=== PATIENT | female | born 1945 | race Caucasian/White ===

== ENCOUNTER 2019-09-16 21:45 | Observation (INO) | payer MEDICARE ==
--- NOTE | 2019-09-16 21:55 | ER Document Report ---
ED Medical Screen (RME) - General Chief Complaint: Headache Stated Complaint: HEADACHE,SLURRED SPEECH Time Seen by Provider: 09/16/19 21:52 Primary Care Provider: STEVE DOBBS MD [Primary Care Provider] - Follow up as needed Notes: HPI: 73-year-old female with prior history of CVA 5 years ago who is not on blood thinners presenting for fairly sudden onset right-sided headache that was intermittent in nature that began yesterday and has become more persistent today. Patient states he became much more painful several hours ago and her son indicated that she might be slurring her speech. She reports no vision changes no unilateral weakness. Does not feel like she is slurring her speech currently. Patient drove herself to the emergency department. PHYSICAL EXAMINATION: Patient has no facial droop and no slurred speech. Patient has no unilateral weakness definitively on exam although it is a limited exam at triage. Alert and oriented x3. I have greeted and performed a rapid initial assessment of this patient. A comprehensive ED assessment and evaluation of the patient, analysis of test results and completion of medical decision making process will be conducted by an additional ED providers. Doctor's Discharge - Discharge Referrals: STEVE DOBBS MD [Primary Care Provider] - Follow up as needed
--- NOTE | 2019-09-16 22:39 | RADIOLOGY REPORT (SQ) ---
EXAM DESCRIPTION: CT HEAD WITHOUT IV CONTRAST COMPLETED DATE/TME: 09/16/2019 21:52 CLINICAL INDICATION: 73-year-old female with headache. COMPARISON: None. TECHNIQUE: CT brain without contrast. This exam was performed according to our departmental dose optimization program which includes use of automated exposure control, adjustment of the mA and/or kV according to patient size and/or use of iterative reconstruction technique. FINDINGS: Multifocal regions of patchy hypoattenuation are present in a subcortical and periventricular deep white matter distribution, nonspecific; however, most likely represent small vessel ischemic disease, age indeterminate. The ventricles, and sulci are prominent suggesting underlying volume loss. The hirsch-white matter differentiation is preserved. There is no mass effect, midline shift, intra- or extra-axial fluid collection/acute hemorrhage. The osseous structures are unremarkable. The paranasal sinuses and mastoid air cells are clear. IMPRESSION: 1. No acute intracranial abnormalities. Nonspecific white matter change most likely small vessel ischemic disease, age indeterminate. 2. CT is insensitive for early evaluation of acute stroke. If there is clinical concern for acute ischemia, an MRI may be considered.
--- NOTE | 2019-09-16 22:40 | RADIOLOGY REPORT (SQ) ---
EXAM DESCRIPTION: XR CHEST 1 VIEW COMPLETED DATE/TME: 09/16/2019 21:52 CLINICAL INDICATION: 73-year-old female with headache. TECHNIQUE: Single view, AP portable chest was obtained. COMPARISON: None. FINDINGS: Unremarkable cardiac and mediastinal silhouette. Heart size is normal. Lungs are clear without focal opacity, pneumothorax or pleural effusions. The visualized bones are within normal limits. Postoperative change of the LEFT humeral head with surgical anchors. IMPRESSION: No acute cardiopulmonary abnormalities.
[2019-09-17 00:02] LABS: ABSOLUTE BASOPHILS # (AUTO) 0.1 10^3/uL (0.0-0.2); ABSOLUTE EOSINOPHILS # (AUTO) 0.1 10^3/uL (0.0-0.6); ABSOLUTE MONOCYTES (AUTO) 0.5 10^3/uL (0.1-1.4); ABSOLUTE NEUT (AUTO) 4.4 10^3/uL (1.7-8.2); BASOPHILS % (AUTO) 0.7 % (0-2); EOSINOPHILS % (AUTO) 1.8 % (0-6); HEMATOCRIT 42.6 % (36.0-47.0); HEMOGLOBIN 14.4 g/dL (12.0-15.5); LYMPHOCYTES % (AUTO) 37.3 % (13-45); MEAN CORPUSCULAR HEMOGLOBIN 30.3 pg (27.0-33.4); MEAN CORPUSCULAR HGB CONC 33.8 g/dL (32.0-36.0); MEAN CORPUSCULAR VOLUME 90 fl (80-97); MONOCYTES % (AUTO) 6.5 % (3-13); PLATELET COUNT 296 10^3/uL (150-450); RED BLOOD COUNT 4.75 10^6/uL (3.72-5.28); SEGMENTED NEUTROPHILS % (AUTO) 53.7 % (42-78); TOTAL CELLS COUNTED % (AUTO) 100 %; WHITE BLOOD COUNT 8.1 10^3/uL (4.0-10.5)
[2019-09-17 00:08] LABS: INTERNATIONAL RATION (INR) 0.98; PARTIAL THROMBOPLASTIN TIME 27.9 SEC (23.5-35.8)
[2019-09-17 00:24] LABS: ALBUMIN 4.1 g/dL (3.5-5.0); ALKALINE PHOSPHATASE 72 U/L (38-126); ANION GAP 10 (5-19); ASPARTATE AMINO TRANSFERASE 19 U/L (14-36); BILIRUBIN,TOTAL 0.6 mg/dL (0.2-1.3); BLOOD UREA NITROGEN 15 mg/dL (7-20); CALCIUM 9.7 mg/dL (8.4-10.2); CARBON DIOXIDE 27 mmol/L (22-30); CHLORIDE 99 mmol/L (98-107); CREATINE KINASE 99 U/L (30-135); GLUCOSE 191 mg/dL (75-110); POTASSIUM 3.7 mmol/L (3.6-5.0); TOTAL PROTEIN 6.9 g/dL (6.3-8.2)
--- NOTE | 2019-09-17 00:32 | ER Document Report ---
ED General - General Chief Complaint: Headache Stated Complaint: HEADACHE,SLURRED SPEECH Time Seen by Provider: 09/16/19 21:52 - HPI Notes: 73-year-old female history of hypertension, hyperlipidemia, diabetes, and stroke (residual left eye complete blindness) presents with 2 days of intermittent right-sided headache and slurred speech. Patient says she never has headaches and has never had a headache only in 1 focal portion of the right side of her head before so this headache is very abnormal for her. Headache is a moderate pain that lasts for minutes to hours and then resolves and has done so numerous times over the past 2 days. Patient was speaking with her son-in-law at around approximately 4 hours prior to arrival on the phone and he noticed that patient was slurring her speech. Says some of the words that she was saying came out garbled. I spoke to patient's son-in-law and he says that this has never happe low before. Patient says she remembers son in law commenting on her speech but does not remember her speech being slurred. Patient denies any trauma, neck pain/stiffness, fever, chest pain, shortness of breath, palpitations, recent med changes, weakness/numbness, change in gait, change in vision - Related Data Allergies/Adverse Reactions: codeine Allergy (Verified 09/16/19 22:28) Home Medications: metformin,lasix,carvedilol, kcl, pravast, paxil, iron Past Medical History - General Information source: Patient, Relative - Social History Smoking Status: Former Smoker Family History: Reviewed & Not Pertinent Patient has homicidal ideation: No Review of Systems - Review of Systems Notes: REVIEW OF SYSTEMS: CONSTITUTIONAL : Denies fever, chills, or sweats. EENT: Denies recent cold/sinus symptoms, denies throat pain CARDIOVASCULAR: Denies chest pain, SHIN RESPIRATORY: Denies cough, denies shortness of breath. GASTROINTESTINAL: Denies abdominal pain, nausea/vomiting. GENITOURINARY: Denies difficulty urinating, painful urination. FEMALE GENITOURINARY: Denies abnormal vaginal bleeding, vaginal discharge. MUSCULOSKELETAL: Denies neck pain, back pain. SKIN: Denies rash or skin lesions. HEMATOLOGIC : Denies easy bruising or bleeding. LYMPHATIC: Denies swollen, enlarged glands. NEUROLOGICAL: +headache, denies change in gait. PSYCHIATRIC: Denies anxiety or stress or depression. Physical Exam - Vital signs Vitals: Temp Pulse BP Pulse Ox 98.1 F 78 150/72 H 96 09/16/19 21:55 09/16/19 21:55 09/16/19 21:55 09/16/19 21:55 - Notes Notes: PHYSICAL EXAMINATION: GENERAL: Well-appearing, well-nourished and in no acute distress. HEAD: Atraumatic, normocephalic. EYES: Pupils equal round, right eye appropriate constriction, left eye dilates when light shined in it, sclera anicteric, conjunctiva are normal. ENT: nares patent, moist mucous membranes. NECK: Normal range of motion, supple without lymphadenopathy, no bruit LUNGS: Breath sounds clear to auscultation bilaterally and equal. No wheezes rales or rhonchi. HEART: Regular rate with irregular rhythm, no murmurs ABDOMEN: Soft, nontender, no guarding, no masses, no CVAT EXTREMITIES: Normal range of motion, no pitting or edema. No cyanosis. NEUROLOGICAL: Awake, alert, conversing appropriately, moves all extremities spontaneously. Cranial nerves II through XII intact bilaterally, normal [id number] bilaterally, 5 out of 5 strength in all extremities, normal sensation PSYCH: Normal mood, normal affect. SKIN: Warm, Dry, normal turgor, no rashes or lesions noted. Course - Re-evaluation Re-evalutation: 09/17/19 00:36 Presentation concerning for possible TIA, rule out hemorrhagic stroke. Patient currently at baseline, but patient and son-in-law appear reliable and given patient's risk factors and prior history of stroke patient is at high risk. Irregular heartbeat but sinus arrhythmia on EKG. No bleed on CT. No ACS symptoms but will obtain one troponin given borderline EKG abnormalities. Check electrolytes, glucose, CT head, monitor, NIH stroke scale, and observation versus admit. 09/17/19 01:21 Patient patient remains return to neurologic baseline, discussed case with Dr. Chowdhury and has accepted patient to [facility] for further work-up for TIA. - Vital Signs Vital signs: Temp Pulse Resp BP Pulse Ox 97.5 F 70 14 150/64 H 99 09/17/19 03:13 09/17/19 04:00 09/17/19 04:00 09/17/19 04:00 09/17/19 04:00 - Laboratory Result Diagrams: 09/17/19 05:54 09/17/19 05:54 Laboratory results interpreted by me: 09/16/19 23:35 Sodium 136.3 L Est GFR (MDRD) Non-Af 58 L Glucose 191 H - EKG Interpretation by Me Additional EKG results interpreted by me: 09/17/19 00:00 Heart rate 70, sinus arrhythmia, no significant ST elevations or depressions, equivocal T wave abnormalities, QTc 436 Discharge - Discharge Clinical Impression: TIA (transient ischemic attack) Condition: Fair Disposition: ADMITTED INPATIENT Admitting Provider: [place] (Hospitalist) Unit Admitted: [facility]
[2019-09-17 00:34] LABS: CREATINE KINASE MB 0.94 ng/mL (<4.55)
[2019-09-17 00:37] LABS: TROPONIN I < 0.012 ng/mL
[2019-09-17] MEDS ORDERED: GLUCAGON,HUMAN RECOMB 1 MG INJ IM PRN (01:22)
[2019-09-17] MEDS ORDERED: DEXTROSE 50%-WATER 25 GM/50 ML DISP.SYRIN IV PRN ×2 (01:22)
[2019-09-17] MEDS ORDERED: ACETAMINOPHEN 325 MG TABLET PO PRN (01:22)
[2019-09-17] MEDS ORDERED: MAGNESIUM HYDROXIDE SUSP 30 ML UDCUP PO PRN (01:22)
[2019-09-17] MEDS ORDERED: DEXTROSE 40% GEL 15 GM TUBE PO PRN ×2 (01:22)
[2019-09-17] MEDS ORDERED: DOCUSATE SODIUM 100 MG CAPSULE PO PRN (01:22)
[2019-09-17] MEDS ORDERED: ATORVASTATIN CALCIUM 80 MG TABLET PO SCH (01:30)
[2019-09-17] MEDS: ASPIRIN 325 MG TABLET, ENT COATED PO SCH ×2 (02:16→11:01)
[2019-09-17] MEDS: HEPARIN SOD (PORCINE) 5,000 UNIT/ML 1 ML VIAL SUBCUT SCH ×2 (05:32→14:19)
--- NOTE | 2019-09-17 05:55 | PDOC H&P ---
History of Present Illness Admission Date/PCP: 09/17/19 01:30 STEVE DOBBS MD Patient complains of: Headache and slurred speech History of Present Illness: BRADFORD RICHARDS is a 73 year old female with a past medical history of CVA and residual left-sided blindness, diabetes, hypertension and dyslipidemia. She presents with at least 24 hours of a dull right sided headache for which she took Tylenol with intermittent relief. She was then noted by family members to have an episode of slurred speech 2 hours prior to presentation which is subsequently resolved with out intervention. In the emergency department she receives Tylenol, her work-up is unremarkable and she is referred to the hospitalist for admission. She denies palpitations, focal weakness or confusion, recent change of [id number] or prescribed medication. Past Medical History Cardiac Medical History: Reports: Hyperlipidema, Hypertension Neurological Medical History: Reports: Ischemic CVA Endocrine Medical History: Reports: Diabetes Mellitus Type 2 Psychiatric Medical History: Reports: Depression Past Surgical History Past Surgical History: Reports: None Social History Information Source: Patient, [facility] Lives with: Alone Smoking Status: Former Smoker Cigarettes Packs Per Day: 0.5 Electronic Cigarette use?: No Number of Years Smokin Last Time Smoked: 1967 Frequency of Alcohol Use: Rare Hx Recreational Drug Use: No Drugs: None Hx Prescription Drug Abuse: No - Advance Directive Resuscitation Status: Full Code Family History Family History: Hypertension Parental Family History Reviewed: Yes Children Family History Reviewed: Yes Sibling(s) Family History Reviewed.: Yes Medication/Allergy Allergies/Adverse Reactions: codeine Allergy (Verified 09/16/19 22:28) Review of Systems Constitutional: ABSENT: chills, fever(s), headache(s), weight gain, weight loss Eyes: ABSENT: visual disturbances Ears: ABSENT: hearing changes Cardiovascular: ABSENT: chest pain, dyspnea on exertion, edema, orthropnea, p alpitations Respiratory: ABSENT: cough, hemoptysis Gastrointestinal: ABSENT: abdominal pain, constipation, diarrhea, hematemesis, hematochezia, nausea, vomiting Genitourinary: ABSENT: dysuria, hematuria Musculoskeletal: ABSENT: joint swelling Integumentary: ABSENT: rash, wounds Neurological: ABSENT: abnormal gait, abnormal speech, confusion, dizziness, focal weakness, syncope Psychiatric: ABSENT: anxiety, depression, homidical ideation, suicidal ideation Endocrine: ABSENT: cold intolerance, heat intolerance, polydipsia, polyuria Hematologic/Lymphatic: ABSENT: easy bleeding, easy bruising Physical Exam Vital Signs: Temp Pulse Resp BP Pulse Ox 97.5 F 70 14 150/64 H 99 09/17/19 03:13 09/17/19 04:00 09/17/19 04:00 09/17/19 04:00 09/17/19 04:00 Intake & Output 09/15/19 09/16/19 09/17/19 11:59 11:59 11:59 Weight 87.9 kg General appearance: PRESENT: no acute distress, well-developed, well-nourished Head exam: PRESENT: atraumatic, normocephalic Eye exam: PRESENT: conjunctiva pink, EOMI, PERRLA. ABSENT: scleral icterus Ear exam: PRESENT: normal external ear exam Mouth exam: PRESENT: moist, tongue midline Neck exam: ABSENT: carotid bruit, JVD, lymphadenopathy, thyromegaly Respiratory exam: PRESENT: clear to auscultation sabine. ABSENT: rales, rhonchi, wheezes Cardiovascular exam: PRESENT: RRR. ABSENT: diastolic murmur, rubs, systolic murmur Pulses: PRESENT: normal dorsalis pedis pul Vascular exam: PRESENT: normal capillary refill GI/Abdominal exam: PRESENT: normal bowel sounds, soft. ABSENT: distended, guarding, mass, organolmegaly, rebound, tenderness Rectal exam: PRESENT: deferred Extremities exam: PRESENT: full ROM. ABSENT: calf tenderness, clubbing, pedal edema Neurological exam: PRESENT: alert, awake, oriented to person, oriented to place, oriented to time, oriented to situation, CN II-XII grossly intact. ABSENT: motor sensory deficit Psychiatric exam: PRESENT: appropriate affect, normal mood. ABSENT: homicidal ideation, suicidal ideation Skin exam: PRESENT: dry, intact, warm. ABSENT: cyanosis, rash Results Laboratory Results: 09/16/19 23:35 09/16/19 23:35 09/16/19 09/16/19 23:35 23:35 WBC 8.1 RBC 4.75 Hgb 14.4 Hct 42.6 MCV 90 MCH 30.3 MCHC 33.8 RDW 14.0 Plt Count 296 Seg Neutrophils % 53.7 Sodium 136.3 L Potassium 3.7 Chloride 99 Carbon Dioxide 27 Anion Gap 10 BUN 15 Creatinine 0.95 Est GFR ( Amer) > 60 Glucose 191 H Calcium 9.7 Total Bilirubin 0.6 AST 19 Alkaline Phosphatase 72 Total Protein 6.9 Albumin 4.1 09/16/19 09/16/19 23:35 23:35 Creatine Kinase 99 CK-MB (CK-2) 0.94 Troponin I < 0.012 Impressions: Chest X-Ray 09/16/19 21:52 IMPRESSION: No acute cardiopulmonary abnormalities. Head CT 09/16/19 21:52 IMPRESSION: 1. No acute intracranial abnormalities. Nonspecific white matter change most likely small vessel ischemic disease, age indeterminate. 2. CT is insensitive for early evaluation of acute stroke. If there is clinical concern for acute ischemia, an MRI may be considered. Assessment and Plan - Diagnosis (1) TIA (transient ischemic attack) Is this a current diagnosis for this admission?: Yes Plan: CVA care site deployed, permissive hypertension, aspirin and statin ordered, follow-up imaging, TSH, lipid profile (2) Hypertension Is this a current diagnosis for this admission?: Yes Plan: Permissive hypertension pending TIA evaluation (3) Diabetes Is this a current diagnosis for this admission?: Yes Plan: Humalog sliding scale q. before meals, follow-up A1c (4) Dyslipidemia Is this a current diagnosis for this admission?: Yes Plan: Statin ordered, follow-up lipid profile (5) Headache Is this a current diagnosis for this admission?: Yes Plan: CT unremarkable for acute finding, symptomatic management - Time Time Spent with patient: 25-34 minutes - Inpatient Certification Medical Necessity: Need Close Monitoring Due to Risk of Patient Decompensation
[2019-09-17 06:24] LABS: ABSOLUTE BASOPHILS # (AUTO) 0.1 10^3/uL (0.0-0.2); ABSOLUTE EOSINOPHILS # (AUTO) 0.2 10^3/uL (0.0-0.6); ABSOLUTE LYMPHOCYTES (AUTO) 3.6 10^3/uL (0.5-4.7); ABSOLUTE MONOCYTES (AUTO) 0.7 10^3/uL (0.1-1.4); ABSOLUTE NEUT (AUTO) 4.8 10^3/uL (1.7-8.2); BASOPHILS % (AUTO) 0.6 % (0-2); EOSINOPHILS % (AUTO) 1.7 % (0-6); HEMATOCRIT 40.2 % (36.0-47.0); HEMOGLOBIN 13.5 g/dL (12.0-15.5); LYMPHOCYTES % (AUTO) 38.7 % (13-45); MEAN CORPUSCULAR HEMOGLOBIN 30.2 pg (27.0-33.4); MEAN CORPUSCULAR HGB CONC 33.7 g/dL (32.0-36.0); MEAN CORPUSCULAR VOLUME 90 fl (80-97); MONOCYTES % (AUTO) 7.4 % (3-13); PLATELET COUNT 260 10^3/uL (150-450); RED BLOOD COUNT 4.48 10^6/uL (3.72-5.28); RED CELL DISTRIBUTION WIDTH 14.4 % (11.5-14.0); SEGMENTED NEUTROPHILS % (AUTO) 51.6 % (42-78); TOTAL CELLS COUNTED % (AUTO) 100 %; WHITE BLOOD COUNT 9.3 10^3/uL (4.0-10.5)
[2019-09-17 06:41] LABS: ANION GAP 9 (5-19); BLOOD UREA NITROGEN 15 mg/dL (7-20); CALCIUM 9.2 mg/dL (8.4-10.2); CARBON DIOXIDE 28 mmol/L (22-30); CHLORIDE 98 mmol/L (98-107); CHOLESTEROL 161.64 mg/dL (0-200); GLUCOSE 136 mg/dL (75-110); POTASSIUM 3.8 mmol/L (3.6-5.0); TRIGLYCERIDES 199 mg/dL (<150)
[2019-09-17 06:48] LABS: VLDL CHOLESTEROL 39.8 mg/dL (10-31)
[2019-09-17 06:52] LABS: DIRECT LDL 104 mg/dL (<100)
--- NOTE | 2019-09-17 09:16 | EKG REPORT ---
SEVERITY:- BORDERLINE ECG - SINUS ARRHYTHMIA, RATE 60-79 VENTRICULAR PREMATURE COMPLEX BORDERLINE LEFT AXIS DEVIATION BORDERLINE T ABNORMALITIES, ANT-LAT LEADS : Confirmed by: Jen Valencia 17-Sep-2019 09:15:54
[2019-09-17] MEDS: INSULIN LISPRO 100 UNIT/ML 3 ML VIAL SUBCUT SCH ×2 (10:59→12:37)
--- NOTE | 2019-09-17 11:19 | PDOC PROGRESS REPORT ---
Subjective Progress Note for:: 09/17/19 Subjective:: The patient reports that she already had her carotid study and echocardiogram done. She mentions an MRI but I did not see a specific order. Reason For Visit: TIA DM Physical Exam Vital Signs: Temp Pulse Resp BP Pulse Ox 97.6 F 65 18 142/64 H 99 09/17/19 10:59 09/17/19 10:59 09/17/19 10:59 09/17/19 10:59 09/17/19 10:59 Intake & Output 09/16/19 09/17/19 09/18/19 06:59 06:59 06:59 Intake Total 240 Output Total 200 Balance 40 Weight 87.9 kg General appearance: PRESENT: no acute distress, cooperative, well-developed Head exam: PRESENT: atraumatic, normocephalic Ear exam: PRESENT: normal external ear exam. ABSENT: bleeding, drainage Respiratory exam: PRESENT: clear to auscultation sabine, symmetrical, unlabored. ABSENT: decreased breath sounds, prolonged expiratory phas, rales, rhonchi, tachypnea, wheezes Cardiovascular exam: PRESENT: RRR, +S1, +S2. ABSENT: bradycardia, diastolic murmur, irregular rhythm, systolic murmur, tachycardia GI/Abdominal exam: PRESENT: normal bowel sounds, soft. ABSENT: distended, guarding, tenderness Rectal exam: PRESENT: deferred Gentrourinary exam: ABSENT: indwelling catheter Extremities exam: ABSENT: pedal edema Musculoskeletal exam: PRESENT: ambulatory, normal inspection Neurological exam: PRESENT: alert, awake, oriented to person, oriented to place, oriented to time, oriented to situation, other - No dysarthria noted. ABSENT: altered Psychiatric exam: PRESENT: appropriate affect. ABSENT: agitated, anxious Focused psych exam: ABSENT: delusional, paranoid, restlessness Skin exam: PRESENT: dry, normal color, warm. ABSENT: rash Results Laboratory Results: 09/17/19 05:54 09/17/19 05:54 09/16/19 09/16/19 09/17/19 23:35 23:35 05:54 WBC 8.1 9.3 RBC 4.75 4.48 Hgb 14.4 13.5 Hct 42.6 40.2 MCV 90 90 MCH 30.3 30.2 MCHC 33.8 33.7 RDW 14.0 14.4 H Plt Count 296 260 Seg Neutrophils % 53.7 51.6 Sodium 136.3 L Potassium 3.7 Chloride 99 Carbon Dioxide 27 Anion Gap 10 BUN 15 Creatinine 0.95 Est GFR ( Amer) > 60 Glucose 191 H Calcium 9.7 Total Bilirubin 0.6 AST 19 Alkaline Phosphatase 72 Total Protein 6.9 Albumin 4.1 Triglycerides Cholesterol LDL Cholesterol Direct VLDL Cholesterol HDL Cholesterol 09/17/19 05:54 WBC RBC Hgb Hct MCV MCH MCHC RDW Plt Count Seg Neutrophils % Sodium 134.9 L Potassium 3.8 Chloride 98 Carbon Dioxide 28 Anion Gap 9 BUN 15 Creatinine 0.78 Est GFR ( Amer) > 60 Glucose 136 H Calcium 9.2 Total Bilirubin AST Alkaline Phosphatase Total Protein Albumin Triglycerides 199 H Cholesterol 161.64 LDL Cholesterol Direct 104 H VLDL Cholesterol 39.8 H HDL Cholesterol 51 09/16/19 09/16/19 23:35 23:35 Creatine Kinase 99 CK-MB (CK-2) 0.94 Troponin I < 0.012 Impressions: Chest X-Ray 09/16/19 21:52 IMPRESSION: No acute cardiopulmonary abnormalities. Head CT 09/16/19 21:52 IMPRESSION: 1. No acute intracranial abnormalities. Nonspecific white matter change most likely small vessel ischemic disease, age indeterminate. 2. CT is insensitive for early evaluation of acute stroke. If there is clinical concern for acute ischemia, an MRI may be considered.
--- NOTE | 2019-09-17 11:50 | RADIOLOGY REPORT (SQ) ---
EXAM DESCRIPTION: CAROTID DOPPLER IMAGES COMPLETED DATE/TIME: 09/17/2019 11:04 am REASON FOR STUDY: tia COMPARISON: None. TECHNIQUE: Grayscale ultrasound, Doppler velocity and spectra, and color Doppler images acquired of the extra-cranial carotid and vertebral arteries. Images stored on PACS. LIMITATIONS: None. FINDINGS: RIGHT CAROTID CCA Velocities: Within normal limits. ICA Velocities Peak systolic 1.23 m/s. End diastolic 0.25 m/s. Proximal ICA/CCA peak systolic ratio 1.6. Spectra normal. No significant plaque. LEFT CAROTID CCA Velocities: Within normal limits. ICA Velocities Peak systolic 0.98 m/s. End diastolic 0.24 m/s. Proximal ICA/CCA peak systolic ratio 1.0. Spectra normal. No significant plaque. VERTEBRAL ARTERIES: Antegrade flow. Normal waveforms. SUBCLAVIAN ARTERIES: Not imaged. OTHER: No other significant finding. IMPRESSION: NO HEMODYNAMICALLY SIGNIFICANT STENOSIS. COMMENT: Quality ID #[id number]: Velocity criteria are extrapolated from the diameter data as defined by t he Society of Radiologists in Ultrasound Consensus Conference. Radiology 2003: 229; 340-346. TECHNICAL DOCUMENTATION: JOB ID: [id number] 2010 [employer]- All Rights Reserved Reading location - IP/workstation name: [email or web address]
[2019-09-17 12:00] LABS: URINE AMPHETAMINES SCREEN NEGATIVE; URINE BARBITURATES SCREEN NEGATIVE; URINE BENZODIAZEPINES SCREEN NEGATIVE; URINE COCAINE SCREEN NEGATIVE; URINE MARIJUANA (THC) SCREEN NEGATIVE; URINE METHADONE SCREEN NEGATIVE; URINE PHENCYCLIDINE SCREEN NEGATIVE
--- NOTE | 2019-09-17 14:14 | PDOC DISCHARGE SUMMARY ---
Impression - Admit/DC Date/PCP Admission Date/Primary Care Provider: 09/17/19 01:30 STEVE DOBBS MD Discharge Date: 09/17/19 - Discharge Diagnosis (1) TIA (transient ischemic attack) Is this a current diagnosis for this admission?: Yes (2) Hypertension Is this a current diagnosis for this admission?: Yes (4) Dyslipidemia Is this a current diagnosis for this admission?: Yes (5) Headache Is this a current diagnosis for this admission?: Yes - Additional Information Resuscitation Status: Full Code Referrals: STEVE DOBBS MD [Primary Care Provider] - Follow up as needed Home Medications: Carvedilol [Coreg 12.5 mg Tablet] 12.5 mg PO BID 09/17/19 Ferrous Sulfate [Feosol 325 mg Tablet] 325 mg PO QHS 09/17/19 Fluoxetine HCl 20 mg PO QHS 09/17/19 Furosemide [Lasix 40 mg Tablet] 40 mg PO QAM 09/17/19 Metformin HCl [Metformin HCl ER] 1,000 mg PO BID 09/17/19 Potassium Chloride 10 meq PO QAM 09/17/19 Pravastatin Sodium 40 mg PO QHS 09/17/19 History of Present Illiness History of Present Illness: BRADFORD RICHARDS is a 73 year old female with a past medical history of CVA and residual left-sided blindness, diabetes, hypertension and dyslipidemia. She presents with at least 24 hours of a dull right sided headache for which she took Tylenol with intermittent relief. She was then noted by family members to have an episode of slurred speech 2 hours prior to presentation which is subsequently resolved with out intervention. In the emergency department she receives Tylenol, her work-up is unremarkable and she is referred to the hospitalist for admission. She denies palpitations, focal weakness or confusion, recent change of [id number] or prescribed medication. Hospital Course Hospital Course: The patient had an unremarkable hospital course. Headache and the dysarthria that she did not appreciate but her family thought she had resolved prior to the arrival at the emergency room. She had no recurrence of symptoms. She did get her carotid ultrasound echocardiogram this morning. She is safe for discharge. Physical Exam Vital Signs: Temp Pulse Resp BP Pulse Ox 97.6 F 65 18 142/64 H 99 09/17/19 10:59 09/17/19 10:59 09/17/19 10:59 09/17/19 10:59 09/17/19 10:59 Intake & Output 09/16/19 09/17/19 09/18/19 06:59 06:59 06:59 Intake Total 240 Output Total 200 Balance 40 Weight 87.9 kg General appearance: PRESENT: no acute distress Head exam: PRESENT: atraumatic, normocephalic Respiratory exam: PRESENT: clear to auscultation sabine. ABSENT: rales, rhonchi, wheezes Cardiovascular exam: PRESENT: RRR, +S1, +S2 GI/Abdominal exam: PRESENT: normal bowel sounds, soft. ABSENT: distended, tenderness Results Laboratory Results: WBC 9.3 10^3/uL (4.0-10.5) 09/17/19 05:54 RBC 4.48 10^6/uL (3.72-5.28) 09/17/19 05:54 Hgb 13.5 g/dL (12.0-15.5) 09/17/19 05:54 Hct 40.2 % (36.0-47.0) 09/17/19 05:54 MCV 90 fl (80-97) 09/17/19 05:54 MCH 30.2 pg (27.0-33.4) 09/17/19 05:54 MCHC 33.7 g/dL (32.0-36.0) 09/17/19 05:54 RDW 14.4 % (11.5-14.0) H 09/17/19 05:54 Plt Count 260 10^3/uL (150-450) 09/17/19 05:54 Lymph % (Auto) 38.7 % (13-45) 09/17/19 05:54 Mccurtain % (Auto) 7.4 % (3-13) 09/17/19 05:54 Eos % (Auto) 1.7 % (0-6) 09/17/19 05:54 Baso % (Auto) 0.6 % (0-2) 09/17/19 05:54 Absolute Neuts (auto) 4.8 10^3/uL (1.7-8.2) 09/17/19 05:54 Absolute Lymphs (auto) 3.6 10^3/uL (0.5-4.7) 09/17/19 05:54 Absolute Monos (auto) 0.7 10^3/uL (0.1-1.4) 09/17/19 05:54 Absolute Eos (auto) 0.2 10^3/uL (0.0-0.6) 09/17/19 05:54 Absolute Basos (auto) 0.1 10^3/uL (0.0-0.2) 09/17/19 05:54 Seg Neutrophils % 51.6 % (42-78) 09/17/19 05:54 ESR 12 mm/hr (0-30) 09/16/19 23:35 PT 13.0 SEC (11.4-15.4) 09/16/19 23:35 INR 0.98 09/16/19 23:35 APTT 27.9 SEC (23.5-35.8) 09/16/19 23:35 Sodium 134.9 mmol/L (137-145) L 09/17/19 05:54 Potassium 3.8 mmol/L (3.6-5.0) 09/17/19 05:54 Chloride 98 mmol/L (98-107) 09/17/19 05:54 Carbon Dioxide 28 mmol/L (22-30) 09/17/19 05:54 Anion Gap 9 (5-19) 09/17/19 05:54 BUN 15 mg/dL (7-20) 09/17/19 05:54 Creatinine 0.78 mg/dL (0.52-1.25) 09/17/19 05:54 Est GFR ( Amer) > 60 (>60) 09/17/19 05:54 Est GFR (MDRD) Non-Af > 60 (>60) 09/17/19 05:54 Glucose 136 mg/dL (75-110) H 09/17/19 05:54 POC Glucose 144 mg/dL (70-110) H 09/17/19 11:00 Hemoglobin A1c % 7.0 % (4.7-6.0) H 09/17/19 05:54 Calcium 9.2 mg/dL (8.4-10.2) 09/17/19 05:54 Total Bilirubin 0.6 mg/dL (0.2-1.3) 09/16/19 23:35 Direct Bilirubin 0.0 mg/dL (0.0-0.4) 09/16/19 23:35 Neonat Total Bilirubin Not Reportable 09/16/19 23:35 Neonat Direct Bilirubin Not Reportable 09/16/19 23:35 Neonat Indirect Bili Not Reportable 09/16/19 23:35 AST 19 U/L (14-36) 09/16/19 23:35 ALT 13 U/L (<35) 09/16/19 23:35 Alkaline Phosphatase 72 U/L (38-126) 09/16/19 23:35 Creatine Kinase 99 U/L (30-135) 09/16/19 23:35 CK-MB (CK-2) 0.94 ng/mL (<4.55) 09/16/19 23:35 Troponin I < 0.012 ng/mL 09/16/19 23:35 Total Protein 6.9 g/dL (6.3-8.2) 09/16/19 23:35 Albumin 4.1 g/dL (3.5-5.0) 09/16/19 23:35 Triglycerides 199 mg/dL (<150) H 09/17/19 05:54 Cholesterol 161.64 mg/dL (0-200) 09/17/19 05:54 LDL Cholesterol Direct 104 mg/dL (<100) H 09/17/19 05:54 VLDL Cholesterol 39.8 mg/dL (10-31) H 09/17/19 05:54 HDL Cholesterol 51 mg/dL (>40) 09/17/19 05:54 Urine Opiates Screen NEGATIVE 09/17/19 11:31 Urine Methadone Screen NEGATIVE 09/17/19 11:31 Ur Barbiturates Screen NEGATIVE 09/17/19 11:31 Ur Phencyclidine Scrn NEGATIVE 09/17/19 11:31 Ur Amphetamines Screen NEGATIVE 09/17/19 11:31 U Benzodiazepines Scrn NEGATIVE 09/17/19 11:31 Urine Cocaine Screen NEGATIVE 09/17/19 11:31 U Marijuana (THC) Screen NEGATIVE 09/17/19 11:31 09/16/19 23:35 CK-MB (CK-2) 0.94 Troponin I < 0.012 Impressions: Chest X-Ray 09/16/19 21:52 IMPRESSION: No acute cardiopulmonary abnormalities. Head CT 09/16/19 21:52 IMPRESSION: 1. No acute intracranial abnormalities. Nonspecific white matter change most likely small vessel ischemic disease, age indeterminate. 2. CT is insensitive for early evaluation of acute stroke. If there is clinical concern for acute ischemia, an MRI may be considered. Carotid Doppler Study 09/17/19 01:24 IMPRESSION: NO HEMODYNAMICALLY SIGNIFICANT STENOSIS. Plan Health Concerns: TIA with history of stroke Plan of Treatment: Add aspirin daily. Increase pravastatin to 80 mg daily or change to atorvastatin or rouvastatin. Consider monitoring blood pressures at home. Continue diabetic/cardiac diet Goals: Improved lipid profile. Maintain systolic blood pressure less than 140. Time Spent: Greater than 30 Minutes Stroke Is this a Stroke Patient?: Yes Stroke Pt being discharged on Anti-thrombolytic therapy?: Yes Stroke Pt being discharged on Anti-coagulation therapy?: No Reason(s) for not prescribing Anti-coagulation therapy:: Not indicated Stroke Pt being discharged on Statins?: Yes Acute Heart Failure - Is this a Heart Failure Patient?: No
[2019-09-17 15:54] VITALS: BP 150/64
[2019-09-17] MEDS ORDERED: METFORMIN HCL 500 MG TABLET PO SCH (18:00)
[2019-09-17] MEDS ORDERED: (PENDING PHARMACY ID) (Metformin Hcl [Metformin Hcl Er] 1,000 MG) PO SCH (18:00)
--- NOTE | 2019-09-17 21:58 | XCELERA REPORT ---
[address] [address] Transthoracic Echocardiogram Report Name: BRADFORD RICHARDS Age: 73 yrs Gender: Female : 1945 Patient Status: Inpatient Patient Location: [address] [place] [address] Study Date: 09/17/2019 08:35 AM Height: 67 in Weight: 190 lb BSA: 2.0 m2 Procedure: A two-dimensional transthoracic echocardiogram with color flow and Doppler was performed. Study Quality: Good. Reason For Study: systolic murmur History: systolic murmur. Ordering Physician: DULCE SQUIRES Performed By: Yajaira Gregg Interpretation Summary The left ventricle is normal in size. There is normal left ventricular wall thickness. LV EF is 65% to 70% Left ventricular systolic function is normal. Doppler measurements suggest impaired left ventricular relaxation, which is associated with grade I/IV or mild diastolic dysfunction The left ventricular wall motion is normal. There is no thrombus. No ASD ,VSD , or PFO seen. The right atrium is normal. The left atrial size is normal. There is no evidence of mitral valve prolapse. There is no vegetation seen on the mitral valve. There is no mitral valve stenosis. There is no aortic valvular vegetation. There is no aortic valve stenosis There is aortic sclerosis without aortic stenosis. There is no LVOT obstruction. There is a mild amount of aortic regurgitation There is no tricuspid stenosis. There is a trace amount of tricuspid regurgitation Normal RVSP.RVSP is 28 mm of Hg , with RA mean of 5. There is no pulmonic valvular stenosis. There is no pulmonic valvular regurgitation. The aortic root is normal size. There is no pericardial effusion. The inferior vena cava was not well visualized MMode/2D Measurements & Calculations RVDd: 2.7 cm LVIDd: 3.7 cm FS: 39.5 % Ao root diam: 2.7 cm IVSd: 1.0 cm LVIDs: 2.2 cm EDV(Teich): 58.6 ml Ao root area: 5.8 cm2 LVPWd: 0.90 cm ESV(Teich): 17.1 ml EF(Teich): 70.9 % Doppler Measurements & Calculations MV E max gi: MV dec slope: Ao V2 max: AI max gi: 82.8 cm/sec 368.4 cm/sec2 145.4 cm/sec 329.5 cm/sec MV A max gi: MV dec time: Ao max PG: AI max P.4 mmHg 114.7 cm/sec 0.22 sec 8.5 mmHg AI dec slope: MV E/A: 0.72 172.3 cm/sec2 AI P1/2t: 560.2 msec LV V1 max PG: PA V2 max: TR max gi: 4.2 mmHg 94.3 cm/sec 228.2 cm/sec LV V1 max: PA max P.6 mmHg TR max P.9 cm/sec 20.9 mmHg Left Ventricle The left ventricle is normal in size. There is normal left ventricular wall thickness. LV EF is 65% to 70%. Left ventricular systolic function is normal. Doppler measurements suggest impaired left ventricular relaxation, which is associated with grade I/IV or mild diastolic dysfunction. The left ventricular wall motion is normal. There is no thrombus. No ASD ,VSD , or PFO seen. Right Ventricle The right ventricle is normal in size and function. Atria The right atrium is normal. The left atrial size is normal. Mitral Valve There is no evidence of mitral valve prolapse. There is no vegetation seen on the mitral valve. There is no mitral valve stenosis. There is a trace amount of mitral regurgitation. Aortic Valve There is no aortic valvular vegetation. There is no aortic valve stenosis. There is aortic sclerosis without aortic stenosis. There is no LVOT obstruction. There is a mild amount of aortic regurgitation. Tricuspid Valve There is no tricuspid stenosis. There is a trace amount of tricuspid regurgitation. Normal RVSP.RVSP is 28 mm of Hg , with RA mean of 5. Pulmonic Valve There is no pulmonic valvular stenosis. There is no pulmonic valvular regurgitation. Great Vessels The aortic root is normal size. The inferior vena cava was not well visualized. Effusions There is no pericardial effusion. : DULCE SQUIRES Lakshmi
[2019-09-17] MEDS ORDERED: CARVEDILOL 12.5 MG TABLET PO SCH (22:00)
[2019-09-17] MEDS ORDERED: FLUOXETINE HCL 20 MG CAPSULE PO SCH (22:00)
[2019-09-17] MEDS ORDERED: FERROUS SULFATE 325 MG TABLET PO SCH (22:00)
[2019-09-18] MEDS ORDERED: (PENDING PHARMACY ID) (Potassium Chloride [Potassium Chloride] 10 MEQ) PO SCH (08:00)
[2019-09-18] MEDS ORDERED: POTASSIUM CHLORIDE 10 MEQ TABLET.ER PO SCH (08:00)
[2019-09-18] MEDS ORDERED: FUROSEMIDE 40 MG TABLET PO SCH (08:00)
== END 2019-09-17 16:07 | disposition home or self-care (01) ==
LOC: ER 21:45 → EH 09-17 01:30 → INTOOBSV 09-17 01:30 → 3W 09-17 03:22
PROVIDERS: ADMIT Hospitalist; ATTEND Hospitalist
DX: G45.9 Transient cerebral ischemic attack, unspecified (principal); I10 Essential (primary) hypertension; E78.5 Hyperlipidemia, unspecified; R51 Headache; I69.398 Other sequelae of cerebral infarction; H54.62 Unqualified visual loss, left eye, normal vision right eye; R47.1 Dysarthria and anarthria; I49.9 Cardiac arrhythmia, unspecified; E11.9 Type 2 diabetes mellitus without complications; Z79.899 Other long term (current) drug therapy; Z79.84 Long term (current) use of oral hypoglycemic drugs; Z87.891 Personal history of nicotine dependence; Z60.2 Problems related to living alone; Z82.49 Family history of ischemic heart disease and other diseases of the circulatory system
CPT/HCPCS: 93005; 99285; 36415 ×2; 82553; 82962; 82550; 85025 ×2; 85652; 85610; 85730; 80048; 80053; 84484; 80307; 83036; 80061; 93306; 93880; 71045; 70450; 93010; 92522; G0378; A9270 ×3; J1644; J3490

== ENCOUNTER → 2020-01-04 | Outpatient (CLI) | payer MEDICARE ==
[2020-01-04 12:54] LABS: ABSOLUTE BASOPHILS # (AUTO) 0.1 10^3/uL (0.0-0.2); ABSOLUTE EOSINOPHILS # (AUTO) 0.1 10^3/uL (0.0-0.6); ABSOLUTE LYMPHOCYTES (AUTO) 2.1 10^3/uL (0.5-4.7); ABSOLUTE MONOCYTES (AUTO) 0.5 10^3/uL (0.1-1.4); ABSOLUTE NEUT (AUTO) 3.7 10^3/uL (1.7-8.2); BASOPHILS % (AUTO) 0.8 % (0-2); EOSINOPHILS % (AUTO) 1.8 % (0-6); HEMATOCRIT 39.3 % (36.0-47.0); HEMOGLOBIN 13.4 g/dL (12.0-15.5); LYMPHOCYTES % (AUTO) 33.3 % (13-45); MEAN CORPUSCULAR HEMOGLOBIN 29.6 pg (27.0-33.4); MEAN CORPUSCULAR VOLUME 87 fl (80-97); MONOCYTES % (AUTO) 7.2 % (3-13); PLATELET COUNT 317 10^3/uL (150-450); RED BLOOD COUNT 4.52 10^6/uL (3.72-5.28); RED CELL DISTRIBUTION WIDTH 13.5 % (11.5-14.0); SEGMENTED NEUTROPHILS % (AUTO) 56.9 % (42-78); TOTAL CELLS COUNTED % (AUTO) 100 %; WHITE BLOOD COUNT 6.4 10^3/uL (4.0-10.5)
[2020-01-04 13:07] LABS: ALBUMIN 4.2 g/dL (3.5-5.0); ALKALINE PHOSPHATASE 86 U/L (38-126); ANION GAP 11 (5-19); ASPARTATE AMINO TRANSFERASE 21 U/L (14-36); BILIRUBIN,DIRECT 0.3 mg/dL (0.0-0.4); BILIRUBIN,TOTAL 1.2 mg/dL (0.2-1.3); BLOOD UREA NITROGEN 14 mg/dL (7-20); CALCIUM 9.3 mg/dL (8.4-10.2); CARBON DIOXIDE 27 mmol/L (22-30); CHLORIDE 98 mmol/L (98-107); CHOLESTEROL 173.73 mg/dL (0-200); GLUCOSE 154 mg/dL (75-110); IRON(TIBC) 70.8 ug/dL (37-170); POTASSIUM 4.2 mmol/L (3.6-5.0); TOTAL PROTEIN 6.7 g/dL (6.3-8.2); TRIGLYCERIDES 146 mg/dL (<150)
[2020-01-04 13:18] LABS: DIRECT LDL 108 mg/dL (<100)
[2020-01-04 13:42] LABS: FERRITIN 8.61 ng/mL (11.1-264.0)
[2020-01-05 11:38] LABS: HEPATITIS C VIRUS AB <0.1 s/co ratio (0.0-0.9)
== END ==
LOC: OD 11:48
PROVIDERS: ATTEND Internal Medicine
DX: E11.9 Type 2 diabetes mellitus without complications (principal); R06.09 Other forms of dyspnea; R53.83 Other fatigue; Z20.5 Contact with and (suspected) exposure to viral hepatitis; D64.9 Anemia, unspecified; R60.0 Localized edema; E78.00 Pure hypercholesterolemia, unspecified; E66.9 Obesity, unspecified; Z79.899 Other long term (current) drug therapy
CPT/HCPCS: 36415; 80053; 80061; 82043; 82570; 82607; 82728; 83036; 83540; 83550; 85025; 86803; 86804